=== PATIENT | female | born 1955 | race Caucasian/White ===

== ENCOUNTER 2017-01-24 08:00 | Inpatient (IN) | payer OTHER ==
[~2017-01-24] VITALS: Ht 162.6 cm; Wt 70.8 kg
[2017-01-24 09:31] LABS: ANION GAP 13.6 mmol/L (8-16); CALCIUM 9.6 mg/dL (8.5-10.1); CARBON DIOXIDE 26.8 mmol/L (21.0-32.0); CREATININE - SERUM 0.9 mg/dL (0.6-1.3); POTASSIUM - SERUM 3.4 mmol/L (3.5-5.1)
[2017-01-24 10:54] LABS: BASOPHILS 0.4 % (0-2); EOSINOPHILS 0.4 % (0-7); HEMATOCRIT 45.9 % (36.0-48.0); HEMOGLOBIN 16.4 g/dL (12-16); IMMATURE GRANULOCYTES 0.1 % (0-5); MCH 32.4 pg (26.0-34.0); MCHC 35.7 g/dL (31.0-37.0); MCV 90.7 fL (80.0-100.0); MEAN PLATELET VOLUME 10.4 fL (7.4-10.4); MONOCYTES 6.1 % (2-11); PLATELET COUNT 257 10x3/uL (130-400); RBC 5.06 10x6/uL (4.00-5.40); RDW 12.5 % (11.5-14.5)
[2017-01-25] VITALS (7 sets, daily range): BP systolic 85–144; BP diastolic 54–80; BMI 26.8
[2017-01-25] MEDS ORDERED: TIROSINT88 MCG PO (08:25)
[2017-01-25] MEDS ORDERED: MIRALAX17 GM PO (08:26)
[2017-01-25] MEDS ORDERED: ASPIRIN81 MG PO (08:26)
[2017-01-25] MEDS ORDERED: CEREFOLIN TAB1 TAB PO (08:28)
[2017-01-25] MEDS ORDERED: KRILL OIL 1,001 EAC1 PO (08:28)
[2017-01-25] MEDS ORDERED: CALCIUM 500 + D1 TAB PO (08:29)
[2017-01-25] MEDS ORDERED: HYDROCHLOROTHIA25 MG PO (08:29)
[2017-01-25] MEDS ORDERED: K-DUR20 MEQ PO (08:30)
[2017-01-25] MEDS ORDERED: PRAVACHOL80 MG PO (08:31)
[2017-01-25] MEDS ORDERED: TRAZODONE HCL50 MG PO (08:32)
[2017-01-25] MEDS ORDERED: PROBIOTIC250 MG PO (08:32)
--- NOTE | 2017-01-25 12:30 | NUR ---
RECIEVED PT TO FLOOR FROM RECOVERY ROOM. O2 VIA NC @ [address] GARCIA CATHETER [address] PLACE, PATENT, DRAINING, SECURED WITH STAT LOCK. DRSG TO L ABD C/D/I. LAP SITES X 2, BANDAGES IN PLACE. R HAND IV PATENT, FLUIDS INFUSING ORDERED, DRSG C/D/I. L HAND IV SALINE LOCKED. NO COMPLAINTS AT THIS TIME. BED IN LOWEST POSITION, SIDE RAILS UP X 2, CALL LIGHT WITHIN REACH.
--- NOTE | 2017-01-25 19:40 | NUR ---
PT C/O DIZZINESS AND FEELING "LIKE I AM GOING TO PASS OUT." B/P 78/[address] ROSALES PAGED.
--- NOTE | 2017-01-25 20:07 | NUR ---
DR. ROSALES RETURNED CALL AND ORDERED A ONE TIME BOLUS OF NS 1000 ML OVER 1 HR.
--- NOTE | 2017-01-25 21:00 | NUR ---
PT ACCIDENTLY PULLED L HAND SALINE LOCK IV OUT. BLEEDING CONTROLED, DRSG APPLIED.
--- NOTE | 2017-01-25 21:50 | NUR ---
CONTACT CENTER MANAGER STARTED PT C/O PAIN 02/22.
--- NOTE | 2017-01-25 21:52 | NUR ---
0.4 MG DILAUDID OFFICE MESSENGER BOLUS DOSE GIVEN ORDERED.
--- NOTE | 2017-01-25 23:12 | NUR ---
PT RESTING IN BED. B/P 102/57, PULSE 91 BPM. NO SIGNS OF ACUTE DISTRESS. PAIN 8/10 WITH MOVEMENT. SOFTWARE ENGINEER ADVISOR ORDERED. NO OTHER COMPLAINTS AT THIS TIME. BED IN LOWEST POSITION, SIDE RAILS UP X 2, CALL LIGHT WITHIN REACH.
[2017-01-26] VITALS: BP 102/62
--- NOTE | 2017-01-26 01:00 | NUR ---
PT AWAKE AND ALERT. STILL ADMITS TO PAIN WHEN QUESTIONED. ENCOURAGED TO USE BALLOON ARTIST FOR PAIN MANAGEMENT. PT STATED SHE IS FRIGHTENED SHE MAY USE TOO MUCH OR FALL ASLEEP AND ROLL OVER ON SOMETHING IMPORTANT. PT STATES "I REALLY AM FINE, JUST WORRY ABOUT A LOT OF THINGS." WILL CONTINUE TO MONITOR. PT DOES DEMONSTRATE FAIR TECHNIQUE WITH IS WHICH IS AT BEDSIDE. VERBALIZES COMPREHENSION OF THE IMPORTANCE OF DOING IS. DENIES FURTHER NEEDS
--- NOTE | 2017-01-26 03:00 | NUR ---
PT AWAKE AT THIS TIME. ONLY SLEEPING INTERMITTENTLY. RESP REG AND NONLABORED. ICE PACK FILLED AND GIVEN TO PT PER HER REQUEST. PT STATES THE DILAUDID IS HELPING HER. CALL LIGHT LEFT IN PT'S REACH. BED IN LOW POSITION.
[2017-01-26 04:00] VITALS: BP 100/66
--- NOTE | 2017-01-26 06:00 | NUR ---
PT DOING WELL ON INCENTIVE SPIROMETRY. ABLE TO EASILY DO 750ML ENCOURAGED TO INCREASED AMOUNT AND USE COOKING CHEF DILAUDID FOR PAIN MANAGEMENT. PT PLEASANT AND ABLE TO MAKE NEEDS KNOWN. CALL LIGHT IN REACH
[2017-01-26 06:22] LABS: ANION GAP 9.9 mmol/L (8-16); CALCIUM 8.3 mg/dL (8.5-10.1); CARBON DIOXIDE 30.2 mmol/L (21.0-32.0)
[2017-01-26 06:29] LABS: POTASSIUM - SERUM 4.1 mmol/L (3.5-5.1)
[2017-01-26 06:30] LABS: BASOPHILS 0.2 % (0-2); EOSINOPHILS 0 % (0-7); IMMATURE GRANULOCYTES 0.2 % (0-5); MCH 32.2 pg (26.0-34.0); MCHC 34.4 g/dL (31.0-37.0); MEAN PLATELET VOLUME 9.9 fL (7.4-10.4); MONOCYTES 9.9 % (2-11); NEUTROPHILS 72.7 % (40-80); PLATELET COUNT 242 10x3/uL (130-400); RDW 13.2 % (11.5-14.5)
[2017-01-26 06:32] LABS: RBC 3.32 10x6/uL (4.00-5.40); WBC 12.5 10x3/uL (4.8-10.8)
[2017-01-26 06:34] LABS: HEMATOCRIT 31.1 % (36.0-48.0); MCV 93.7 fL (80.0-100.0)
[2017-01-26 06:37] LABS: HEMOGLOBIN 10.7 g/dL (12-16)
[2017-01-26 08:18] VITALS: BP 106/65
--- NOTE | 2017-01-26 11:11 | NUR ---
Patient Name: LAILA NESBITT Admission Status: Elective Accout number: [id number] Admission Date: 01-25-2017 : 1955 Admission Diagnosis: Attending: TIFFANIE ROSALES Current LOS: 1 Anticipated DC Date: 01-28-2017 Planned Disposition: Home Primary Insurance: [facility] Discharge Planning Comments: CM MET WITH PATIENT REGARDING D/C NEEDS AND PLANS. PATIENT STATED SHE LIVES WITH HER SPOUSE (KIMBERLEE) AND HE WILL DRIVE HER HOME AT DISCHARGE. PATIENT HAS ONE STEP TO ENTER HOME AND NO STAIRS INSIDE. PATIENT STATED SHE IS INDEPENDENT WITH HER CARE AND HAS A CANE AND BUILT IN SHOWER CHAIR AT HOME. PATIENTS PCP IS DR. SMITH AT THE [facility] AND USES [facility] AT [facility]. PATIENT IS REFUSING HOME HEALTH AT DISCHARGE. CM WILL CONTINUE TO FOLLOW PATIENT WITH D/C NEEDS AND PLANS. PCP DR. SARAH GARCIA AT [facility]- [phone] KIMBERLEE (SPOUSE) [phone] Lot Attendant: Margarita Elise Is the patient Alert and Oriented? Yes 0 * How many steps to enter\exit or inside your home? 1 0 * PCP DR. SMITH AT [facility] SEES PLASTIC DESIGN APPLIER 0 * Pharmacy [facility] AT [facility] 0 * Preadmission Environment Home with Family 0 * ADLs Independent 0 * Equipment Cane 0 * Other Equipment BUILT IN SHOWER CHAIR 0 * List name and contact numbers for known caregivers / representatives who currently or will assist patient after discharge: KIMBERLEE (SPOUSE) [phone] 0 * Community resources currently utilized None 0 * Additional services required to return to the preadmission environment? Yes 0 * Can the patient safely return to the preadmission environment? Yes 0 * Has this patient been hospitalized within the prior 30 days at any hospital? No 0 Grand Total: 0
[2017-01-26 12:27] VITALS: BP 103/58
--- NOTE | 2017-01-26 12:50 | NUR ---
DENIES NEEDS AT PRESENT. BED LOW, CL IN REACH.
[2017-01-26 14:01] VITALS: Ht 162.6 cm; Wt 70.8 kg
[2017-01-26 16:24] VITALS: BP 108/57
[2017-01-26 20:00] VITALS: BP 117/66
--- NOTE | 2017-01-26 20:00 | NUR ---
AWAKE,ALERT.NO COMPLAINTS VOICED. IV INFUSING TO LEFT FOREARM WITHOUT REDNESS OR EDEMA NOTED. UP TO BATHROOM WIHT ASSIST. VOIDING WIHTOUT DIFFICULTY. DRSG TO ABD INTACT WIHT SMALL AMT DRIED DRAINAGE NOTED. CL IN REACH.
[2017-01-27] VITALS: BP 111/65
--- NOTE | 2017-01-27 02:00 | NUR ---
PT UP TO SINK WASHING HANDS. NO NEEDS ARE VOICED. SIDE RAILS X 2. BED IS LOW. CALL LIGHT IN REACH.
[2017-01-27 04:00] VITALS: BP 124/76
--- NOTE | 2017-01-27 04:01 | NUR ---
RESTING QUIETLY. NO DISTRESS NOTED.
[2017-01-27 05:33] LABS: BASOPHILS 0.4 % (0-2); EOSINOPHILS 0.1 % (0-7); IMMATURE GRANULOCYTES 0.2 % (0-5); LYMPHOCYTES 18.2 % (15-50); MCH 32.1 pg (26.0-34.0); MCHC 34.2 g/dL (31.0-37.0); MEAN PLATELET VOLUME 9.4 fL (7.4-10.4); MONOCYTES 6.7 % (2-11); NEUTROPHILS 74.4 % (40-80); RDW 13.2 % (11.5-14.5)
[2017-01-27 05:38] LABS: HEMATOCRIT 23.4 % (36.0-48.0); PLATELET COUNT 155 10x3/uL (130-400); RBC 2.49 10x6/uL (4.00-5.40); WBC 8.2 10x3/uL (4.8-10.8)
[2017-01-27 05:46] LABS: CARBON DIOXIDE 27.4 mmol/L (21.0-32.0); CHLORIDE - SERUM 111 mmol/L (98-107); GLUCOSE 99 mg/dL (74-106); SODIUM 144 mmol/L (136-145)
[2017-01-27 05:47] LABS: CALC OSMOLALITY 287 mosm/kg (275-300); CREATININE - SERUM 0.7 mg/dL (0.6-1.3); POTASSIUM - SERUM 3.3 mmol/L (3.5-5.1); UREA NITROGEN 14 mg/dL (7-18); eGFR NON AFRICAN AMERICAN 90 mL/min (90-120)
[2017-01-27 08:02] VITALS: BP 117/65
--- NOTE | 2017-01-27 09:45 | NUR ---
PATIENT IN BED WITH IV INTACT. NO COMPLAINTS AT THIS TIME. INCISIONS TO ABDOMEN X 2 WITH CHRISTIANO CDI. FAMILY AT BEDSIDE. CALL LIGHT WITHIN REACH.
--- NOTE | 2017-01-27 10:30 | NUR ---
PATIENT UP AMBULATING IN [place] WITH NO PROBLEMS.
[2017-01-27 12:21] VITALS: BP 134/71
[2017-01-27 16:01] VITALS: BP 136/70
--- NOTE | 2017-01-27 16:50 | NUR ---
PATIENT UP AMBULATING AT THIS TIME.
--- NOTE | 2017-01-27 18:45 | NUR ---
PATIENT SITTING UP IN BED WITH IV INTACT. NO COMPLAINTS AT THIS TIME. FAMILY AT BEDSIDE. CALL LIGHT WITHIN REACH.
--- NOTE | 2017-01-27 19:00 | NUR ---
REPORT RECEIVED AND CARE OF PT ASSUMED. PT LYING IN SEMI BUCK'S POSITION WATCHING TV. IV IN RIGHT HAND PATENT WITH NS INFUSING AT 50 ML / HR. INCISIONS ON ABDOMEN OPEN TO AIR...CLEAN, DRY AND WELL APPROXIMATED WITH CHRISTIANO. SCD'S IN USE ON BLE. WILL MONITOR FOR NEEDS. CALL LIGHT WITHIN REACH.
[2017-01-27 20:00] VITALS: BP 131/77
--- NOTE | 2017-01-27 21:30 | NUR ---
SPOKE TO DR ROSALES WHO CALLED FOR UPDATE ON PT. NEW ORDER TO D/C IV FLUIDS AND SALINE LOCK IV.
--- NOTE | 2017-01-27 22:08 | NUR ---
HS MEDICATIONS GIVEN. WILL CONTINUE TO MONITOR FOR NEEDS. PT DECLINES PAIN MEDICATION AT THIS TIME. SL IV PER NEW ORDER FROM .
[2017-01-28] VITALS: BP 132/69
--- NOTE | 2017-01-28 00:42 | NUR ---
PT REQUESTING TYLENOL FOR DURAN...TOLD THAT SHE DID NOT HAVE IT ORDERED, BUT THAT I COULD CALL MD...PT DECLINED AND SAID IF SHE STAYED STILL DURAN WAS NEARLY GONE. SHE DOSN'T WANT TO TAKE NARCOTICS...OFFERED ON LY 05/17 OF THE NORCO SHE HAD ORDERED IF DURAN GOT WORSE.
[2017-01-28 04:00] VITALS: BP 138/84
--- NOTE | 2017-01-28 05:47 | NUR ---
PT AMBULATING IN THE HALLWAY USING WALKER.
[2017-01-28 06:48] LABS: BASOPHILS 0.2 % (0-2); EOSINOPHILS 0.3 % (0-7); HEMATOCRIT 23.3 % (36.0-48.0); HEMOGLOBIN 8.2 g/dL (12-16); IMMATURE GRANULOCYTES 0.3 % (0-5); LYMPHOCYTES 16.1 % (15-50); MCH 32.3 pg (26.0-34.0); MCHC 35.2 g/dL (31.0-37.0); MCV 91.7 fL (80.0-100.0); MEAN PLATELET VOLUME 9.6 fL (7.4-10.4); MONOCYTES 5.8 % (2-11); NEUTROPHILS 77.3 % (40-80); PLATELET COUNT 165 10x3/uL (130-400); RBC 2.54 10x6/uL (4.00-5.40); WBC 9.4 10x3/uL (4.8-10.8)
--- NOTE | 2017-01-28 07:00 | NUR ---
REPORT RECIEVED ASSUMED CARE. PATIENT IN BED WITH IV INTACT. NO OCMPLAINTS. FAMILY AT BEDSIDE. CALL LIGHT WITHIN REACH.
[2017-01-28 07:32] LABS: CALCIUM 8.3 mg/dL (8.5-10.1); CARBON DIOXIDE 26.6 mmol/L (21.0-32.0); CHLORIDE - SERUM 105 mmol/L (98-107); CREATININE - SERUM 0.7 mg/dL (0.6-1.3); GLUCOSE 95 mg/dL (74-106); SODIUM 141 mmol/L (136-145); eGFR NON AFRICAN AMERICAN 90 mL/min (90-120)
[2017-01-28 07:38] LABS: CALC OSMOLALITY 279 mosm/kg (275-300); UREA NITROGEN 10 mg/dL (7-18)
[2017-01-28 07:40] LABS: POTASSIUM - SERUM 2.6 mmol/L (3.5-5.1)
--- NOTE | 2017-01-28 07:45 | NUR ---
PATIENT ASSESSMENT COMPLETE, VS STABLE. NO COMPLAINTS AT THIS TIME. IV INTACT. INCISIONS TO ABD CDI. CHRISTIANO INTACT AND NO SIGNS OF INFECTION TO INCISIONS. CALL LIGHT WITHIN REACH.
[2017-01-28 07:58] VITALS: BP 136/75
[2017-01-28] MEDS ORDERED: HYDROCODONE-APA1 TAB PO (10:07)
--- NOTE | 2017-01-28 11:19 | NUR ---
CM REASSESSMENT NOTE: PATIENT IS DISCHARGING HOME TODAY/SPOUSE DRIVING. PATIENT REFUSING HOME HEALTH AND STATED SHE HAD NO OTHER NEEDS FOR DISCHARGE.
--- NOTE | 2017-01-28 12:30 | NUR ---
PATIENT RECIEVED DISCHARGE INSTRUCTIONS. VERBALIZED UNDERSTANDING. NO QUESTIONS AT THIS TIME. PRESCRIPTIONS GIVEN TO PATIENT WELL. IV REMOVED WITH CATH TIP INTACT. CALL LIGHT WITHIN REACH.
--- NOTE | 2017-01-28 14:02 | OP ---
PATIENT NAME: LAILA NESBITT MEDICAL RECORD: [id number] :54 LOCATION:[id number] ADMISSION DATE:01/25/17 SURGEON: ADITYA ROSALES MD DATE OF OPERATION: 01/25/2017 PREOPERATIVE DIAGNOSES: 1. Cecal polyp. 2. Hypertension. 3. Hyperlipidemia. 4. Hypothyroidism. POSTOPERATIVE DIAGNOSES: 1. Cecal polyp. 2. Hypertension. 3. Hyperlipidemia. 4. Hypothyroidism. PROCEDURE: Hand-assisted laparoscopic right hemicolectomy. SURGEON: Aditya Rosales MD REPORT OF PROCEDURE: The patient's abdomen was prepped and draped in sterile fashion. A skin incision was made in the midline around the patient's umbilicus. Electrocautery was used to dissect through the subcutaneous tissues until we encountered the fascia. We dissected through the fascia and entered the abdominal cavity. We then placed a GelPort with a 5-mm trocar within it. With this, we were able to insufflate the abdomen. Under direct visualization, a 5-mm trocar was placed in the epigastrium and another was placed in the right subcostal region. We then mobilized the patient's right colon medially. We did this by using electrocautery to take down the white line of Toldt. We did a tedious dissection of this lateral adhesions all the way around to mobilization of the hepatic flexure. We came through the hepatic flexure and continued our dissection until we had the right colon, terminal ileum and the proximal transverse colon up to the mid transverse colon all freely mobilized. At this point, we were able to eviscerate this through the wound protector. We transected the terminal ileum using a 55 blue load BLAIR stapler and the proximal transverse colon again using a 55 blue load BLAIR stapler. The mass was easily palpable in the cecum. There was no sign of any gross metastatic disease. The mesentery was then taken down with sequential clamp and tie technique using 3-0 silks. Once the specimen was completely excised, it was sent off for permanent pathology. We then irrigated out the abdomen and assured there was no sign of any bleeding. We performed a [id number] anastomosis of the terminal ileum to the mid transverse colon using a 55 blue load BLAIR stapler. We then closed the enterotomies using a 30 blue load TA stapler and oversewed the staple line using Lemberted 3-0 silks. This was placed back into the abdominal cavity and the omentum was placed over top of it. We inspected one last time to assure there was no sign of any bleeding, which there was none. At this point, the ports and insufflation were then removed. The midline fascia was closed with running #1 loop PDS times 2. The subcutaneous tissues were irrigated out thoroughly with normal saline and then reapproximated with interrupted 3-0 Vicryls. The skin incisions were all closed with nuha and dressed appropriately. COMPLICATIONS: None. CONDITION: Stable. OPERATIVE REPORT [id number] LAILA NESBITT ANESTHESIA: General endotracheal and local. BLOOD LOSS: Minimal. TRANSINT:[id number] Voice Confirmation ID: [id number] DOCUMENT ID: [id number] ADITYA ROSALES MD at 1402 CC: GIANNA SMITH [id number] DICTATION DATE: 01/25/17 1132 FOUNDRY WORKER GENERAL: 01/25/17 1805 DIS IN 01/28/17 [facility] [address] [place] [address]
== END 2017-01-28 13:51 | disposition home or self-care (01) | DRG 330 ==
LOC: D.SDCHOLD 01-25 05:06 → D.MS 01-25 05:06 → D.SDCHOLD 01-25 08:00 → D.MS 01-25 11:54
PROVIDERS: ADMIT Surgery
PROC: 0DTF0ZZ Resection of Right Large Intestine, Open Approach (ICD-10-PCS; principal; 2017-01-25 09:30)
DX: D12.0 Benign neoplasm of cecum (principal); D62 Acute posthemorrhagic anemia; I10 Essential (primary) hypertension; E78.5 Hyperlipidemia, unspecified; E03.9 Hypothyroidism, unspecified; E87.6 Hypokalemia

== ENCOUNTER 2017-02-02 12:23 | Observation (INO) | payer OTHER ==
[~2017-02-02] VITALS: Ht 162.6 cm; Wt 70.8 kg
[~2017-02-02 12:23] MED LIST: ASPIRIN81 MG PO; CALCIUM 500 + D1 TAB PO; CEREFOLIN TAB1 TAB PO; HYDROCHLOROTHIA25 MG PO; HYDROCODONE-APA1 TAB PO; K-DUR20 MEQ PO; KRILL OIL 1,001 EAC1 PO; MIRALAX17 GM PO; PRAVACHOL80 MG PO; PROBIOTIC250 MG PO; TIROSINT88 MCG PO; TRAZODONE HCL50 MG PO
[2017-02-03 10:47] VITALS: Ht 162.6 cm; Wt 70.8 kg
[2017-02-04 08:00] VITALS: BP 110/70
[2017-02-04] MEDS ORDERED: ZOFRAN ODT4 MG/UDTAB PO (10:13)
== END 2017-02-04 12:37 | disposition home or self-care (01) ==
LOC: D.M2 12:23 → OBSVTIME 13:25 → D.M2 02-04 12:37
PROVIDERS: ADMIT Surgery
DX: K56.7 Ileus, unspecified (principal); E86.0 Dehydration; Z86.010 Personal history of colon polyps; I10 Essential (primary) hypertension; E03.9 Hypothyroidism, unspecified; D62 Acute posthemorrhagic anemia